=== PATIENT | male | born 1965 | race Caucasian/White ===

== ENCOUNTER → 2022-03-20 | Outpatient (CLI) | payer OTHER ==
[2022-03-21 03:06] LABS: RUBELLA AB IGG-REFLAB >33.00 index (Immune >0.99)
[2022-03-21 05:07] LABS: RUBEOLA (MEASLES) IGG <13.5 AU/mL (Immune >16.4)
== END | disposition home or self-care (01) ==
LOC: LABMN 10:45
PROVIDERS: ATTEND Internal Medicine
DX: Z20.1 Contact with and (suspected) exposure to tuberculosis (principal)
CPT/HCPCS: 86706; 86735; 86762; 86765; 86787